=== PATIENT | male | born 1990 | race Caucasian/White ===

== ENCOUNTER 2023-05-14 18:27 | Emergency (ER) | payer BC, SELFPAY ==
[2023-05-14 18:28] VITALS: BP 135/82; PULSE 68; RESP 16; TEMP 36.1; O2SAT 99; BMI 39.6
--- NOTE | 2023-05-14 18:49 | EKG12_ITS ---
Test Reason : PALPS Blood Pressure : / mmHG Vent. Rate : 060 BPM Atrial Rate : 060 BPM P-R Int : 142 ms QRS Dur : 090 ms QT Int : 436 ms P-R-T Axes : -03 062 027 degrees QTc Int : 436 ms Poor data quality, interpretation may be adversely affected Normal sinus rhythm with sinus arrhythmia Normal ECG No previous ECGs available Confirmed by ALICIA CUMMINS MD ([id number]), editor & co founder ANNEMARIE STEARNS ([id number]) on 05/16/2023 11:16:29 AM Referred By: RAINA Confirmed By:ALICIA CUMMINS MD
--- NOTE | 2023-05-14 18:50 | ED.VIS.CHEST ---
HPI History of Present Illness Chief Complaint: Palpitations Informant: patient and spouse/S.O. Narrative Narrative: 32-year-old male presenting to the emergency room with chief complaint of palpitations. Patient states that this morning shortly after 0900 while awaking from sleep he noticed a pressure in his epigastrium. He states that his significant other had leg on the abdomen and seem to make the sensation spread out. It resolved. He notes that he has had at least 3 episodes of he describes as palpitations lasting less than 1 minute. He states that this concerned him and wanted to be evaluated. However the hospital his smart watch so that his oxygen level is 92% his heart rate was 66 which was odd because that is typically only his resting heart rate. He is a non-smoker. He notes his grandfather had early onset heart disease. [facility] Medical History (Updated 05/14/23 @ 19:[address] Floyd Sandhu DO) Palpitations Allergy/AdvReac Type Severity Reaction Status Date / Time azithromycin Allergy Rash Verified 05/14/23 19:25 Social History Smoking Status: Unknown if ever smoked ROS ROS ED Constitutional Constitutional ED: Denies chills, fever(s) or weight loss Eyes Eyes: Denies change in vision or diplopia ENT ENT ED: Denies ear pain, rhinorrhea or sore throat Cardiovascular Cardiovascular: Reports chest pain and palpitations; Denies orthopnea or racing heartbeat Respiratory/Chest Respiratory/Chest: Denies cough, dyspnea or orthopnea Gastrointestinal Gastrointestinal: Denies abdominal pain, diarrhea, nausea or vomiting Genitourinary Genitourinary ED: Denies dysuria, hematuria or urinary frequency Musculoskeletal Musculoskeletal: Denies arthralgias or myalgias Integumentary Denies abscess or rash Neurologic Neurologic: Denies headache(s) or weakness Psychiatric Psychiatric: Denies anxiety, depression, suicidal ideation or suicidal thoughts Endocrine Endocrinology: Denies polydipsia, polyphagia or polyuria Allergic/Immunologic Allergic/Immunologic ED: Denies mouth swelling, tongue swelling or urticaria EXAM Physical Exam Const Vital Signs: 05/14/23 18:28 Temperature 97 F L Temperature Source Temporal Pulse Rate 68 Respiratory Rate 16 Blood Pressure 135/82 H Blood Pressure Mean 99 Pulse Ox 99 Positive well nourished, well developed and obese General Appearance ED: well developed Nutritional Appearance: obese HEENT Reports normocephalic, head/scalp atraumatic and moist mucous membranes Eyes PERRL and EOMs intact bilaterally Neck no lymphadenopathy, supple and no JVD Resp normal respiratory effort and clear to auscultation bilaterally Cardio regular rate, regular rhythm and no murmurs GI normal to inspection, nondistended, normoactive bowel sounds and non-tender Palpation: soft Back/Spine no CVA tenderness and normal ROM Extremity normal to inspection General Extremety ED: Negative for edema General Extremity: Negative for edema Neuro oriented x3 and CN's II-XII intact bilaterally Sensorium / Orientation: alert Motor Exam: strength 5/5 throughout Psych mental status grossly normal Mood & Affect: Negative for depressed or tearful Skin no rashes or lesions noted and no wounds MDM MDM MDM Narrative Medical decision making narrative: My interpretation of the chest x-ray is normal mediastinal silhouette. Patient is a normal sinus rhythm. EKG shows no acute findings. Electrolytes are within normal limits. Troponin is 5. Hemoglobin 14.2. At this point I think the patient can be discharged home. I did recommend follow-up with his primary care doctor return if worsening or concerns History & Record Review Discussion w/independent historian: Patient and Significant other Lab Data Attestation: I reviewed the patient's lab results. Labs: Laboratory Results - last 24 hr 05/14/23 18:55 WBC 10.5 RBC 5.22 Hgb 14.2 Hct 44.8 MCV 85.8 MCH 27.2 MCHC 31.7 L RDW Std Deviation 41.1 RDW Coeff of Aarti 13.2 Plt Count 267 MPV 9.8 Immature Gran % (Auto) 1.400 H Neut % (Auto) 55.4 Lymph % (Auto) 34.0 Person % (Auto) 5.5 Eos % (Auto) 2.7 Baso % (Auto) 1.0 Absolute Neuts (auto) 5.8 Absolute Lymphs (auto) 3.56 Nucleated RBC % 0 Sodium 138 Potassium 4.0 Chloride 107 Carbon Dioxide 28.0 Anion Gap 3 L BUN 11 Creatinine 0.80 Estim Creat Clear Calc 133.79 Est GFR (MDRD) Af Amer 145 Est GFR (MDRD) Non-Af 120 BUN/Creatinine Ratio 13.8 Glucose 86 Calcium 9.2 Troponin I High Sens 5 Radiography Diagnostic Testing: Clinical Impression(s) from Imaging Studies Chest X-Ray 05/14/23 19:00 IMPRESSION: Normal x-ray examination of the chest for age. Electronically Signed: Ana Rodas MD at 19:14 EDT , EKG Initial EKG: Attestation: I personally reviewed and interpreted this EKG as follows: Comments: Normal sinus rhythm with a ventricular rate of 60 bpm. No concerning features of ACS noted. Discharge Plan Triage Chief Complaint: Palpitations ED Provider: Floyd Sandhu Dx/Rx/DC Orders Clinical Impression: Palpitations, Acute epigastric pain Instructions: ED Palpitations Primary Care Provider: Care Physician,No Primary Referrals: NOT,DEFINED [Non-Staff] - Wolf Ho MD [Med Staff - Active Staff] - Activity Restrictions/Additional Instructions: Please follow-up with primary care doctor of your choice or the physician above. Please return to the emergency department if worsening or any concerns Disposition Disposition: Home, Self Care
--- NOTE | 2023-05-14 19:00 | RAD_ITS ---
STUDY: X-RAY CHEST REASON FOR EXAM: Male, 32 years old. chest pain TECHNIQUE: Single AP portable view of the chest. COMPARISON: None. FINDINGS: The lungs are clear and expanded. There is no demonstrated pleural abnormality. Normal size heart. Normal mediastinum and candelaria. Normal visualized pulmonary arteries. Normal visualized aortic arch and descending thoracic aorta. Normal visualized thoracic spine. Normal visualized ribs, clavicles, and shoulders. There is no demonstrated abnormality of the visualized soft tissue structures of the upper abdomen. RAD/Chest 1 View (Portable) IMPRESSION: Normal x-ray examination of the chest for age. Electronically Signed: Ana Rodas MD at 19:14 EDT ,
[2023-05-14 19:23] LABS: Absolute Lymphocyte Count 3.56 X10^3/uL (0.83-4.51); Absolute Neutrophil Count 5.8 X10^3/uL (2.0-7.7); Eosinophil# 0.28 X10^3/uL; Eosinophils% 2.7 % (0-5); Hematocrit 44.8 % (40-54); Hemoglobin 14.2 g/dL (13.0-16.5); Lymphocyte # 3.56 X10^3/ul (0.83-4.51); Mean Corp Hgb Conc 31.7 g/dL (32-36); Mean Corpuscular Hgb 27.2 pg (27.0-32.0); Mean Corpuscular Volume 85.8 fL (80-94); Mean Platelet Vol. 9.8 fl (6.2-12.0); Monocyte# 0.58 X10^3/uL; Monocyte% 5.5 % (0-10); NRBC Flagged by Analyzer 0 % (0-5); Neutrophil # 5.79 X10^3/uL (2.7-7.7); Neutrophil % 55.4 % (47-70); Platelet Count 267 K/mm3 (150-450); RBC Distribution Width CV 13.2 % (11.6-14.6); RBC Distribution Width SD 41.1 fl (35.1-43.9); Red Blood Count 5.22 M/mm3 (4.6-6.2); White Blood Count 10.5 K/mm3 (4.4-11.0)
[2023-05-14 19:41] LABS: Anion Gap 3 (5-15); BUN 11 mg/dL (7-18); BUN/Creat Ratio 13.8 RATIO (10-20); Calcium,Total 9.2 mg/dL (8.5-10.1); Chloride 107 mmol/L (98-107); EST Glomerular Filtration Rate 120 mL/min (>60); Est Glom Filt Rate - Afr Amer 145 mL/min (>60); Estimated Creatinine Clearance 133.79 ml/min; Glucose 86 mg/dL (74-106); Sodium Level 138 mmol/L (136-145); Troponin-I HS (w/2H Reflex) 5 pg/mL (3.0-78.0)
[2023-05-14 20:03] VITALS: BP 134/81; PULSE 69
[2023-05-14 21:20] LABS: Reflex Troponin-HS? (from REC) Y
== END 2023-05-14 20:04 | disposition home or self-care (01) ==
PROVIDERS: Emergency Provider Emergency Medicine; Visit Provider Emergency Medicine
DX: R00.2 Palpitations (principal); R10.13 Epigastric pain; R07.9 Chest pain, unspecified; E66.9 Obesity, unspecified
CPT/HCPCS: 71045; 80048; 84484; 85025; 93005; 99283; A4216

== ENCOUNTER 2023-08-25 01:59 | Day surgery (SDC) | payer BC, SELFPAY ==
[2023-08-25 02:00] VITALS: BP 122/89; PULSE 75; RESP 18; TEMP 37.1; O2SAT 99; BMI 42.0
--- NOTE | 2023-08-25 02:24 | ED.VIS.GI ---
HPI HPI - GI History of Present Illness Chief Complaint: Foreign Body Informant: patient Narrative Narrative: Patient feels as though he has a piece of chicken stuck in his esophagus. He states he was not eating chicken bones. But about an hour and a half ago he was eating. He swallowed a piece and it appeared to get stuck. He has not and does not have any trouble breathing. He has had this happen before but normally if he takes a few drinks of water it will go down and go away. He has never been seen before for it. He is on no meds. He felt fine prior to this happening. [facility] Medical History Palpitations Home Medications testosterone cypionate 200 mg/mL intramuscular oil 100 mg IM Q7D 08/25/23 [History Last Taken Unknown] Allergy/AdvReac Type Severity Reaction Status Date / Time azithromycin Allergy Rash Verified 08/25/23 02:00 Social History Smoking Status: Unknown if ever smoked ROS ROS ED ROS Narrative A complete review of systems was performed and is negative except as documented in the history of present illness. Some specific details below. Constitutional: No recent fevers or chills. ENT: No pain. No swelling. See history of present illness. CV: No chest pain or palpitations. Respiratory: No dyspnea. No hemoptysis. No difficulty taking breaths. GI: Please see history of present illness. : No frequency dysuria or hematuria. Musculoskeletal: No recent trauma. No pains. Skin: No rash. Nondiaphoretic. Neuro: No weakness or numbness. Endocrine: No polyuria or polydipsia. EXAM Physical Exam Narrative Exam Narrative: CONSTITUTIONAL: Patient is nontoxic in appearance. The patient looks comfortable. He is spitting saliva into a bag. HEENT: No notable trauma. Mucous membranes moist. No sinus tenderness. No indication of pain with swallowing. No swollen areas. Voice is normal. EYES: No pallor. CARDIOVASCULAR: Regular rate. Regular rhythm. No notable murmur. No JVD. RESPIRATORY: No respiratory distress. Breathing is unlabored. No wheezes. No rhonchi. No rales. No pain with a deep breath. GASTROINTESTINAL: Not distended. Bowel sounds are normal. No tenderness. No guarding. No rebound. Overall very benign abdomen. GENITOURINARY: No CVA tenderness. MUSCULOSKELETAL: Atraumatic. NEUROLOGICAL: Patient is alert and appropriate. No focal deficit noted. SKIN: No noted rashes. No diaphoresis. PSYCHIATRIC: Patient is calm. Mood is appropriate. Const Vital Signs: 08/25/23 02:00 08/25/23 02:04 08/25/23 03:49 Temperature 98.7 F 98.4 F Temperature Source Oral Oral Pulse Rate 75 95 Respiratory Rate 18 18 Respiratory Effort Normal Non-Labored Respiratory Pattern Normal Blood Pressure 122/89 H 152/111 H Blood Pressure Mean 100 124 Blood Pressure Source Monitor Blood Pressure Position Semi-Fowlers Blood Pressure Location Right Forearm Pulse Ox 99 95 Oxygen Delivery Method Room Air Room Air MDM MDM MDM Narrative Medical decision making narrative: We had the patient drink warm Diet Coke. Landed firmly on his heels. We will have him repeat this several times to see if we can get this to move. This did not get the food bolus to pass. We will place an IV and give glucagon. We will try again. Patient CBC shows minimal elevation of white count of 13 7 which is nonspecific. Patient's electrolytes show no marked abnormalities. Glucose was minimally up at 115. Liver function test showed minimal elevations of ALT and AST. Bilirubin and alk phos are normal. We have given him IV fluids, IV glucagon, tried multiple times with Diet Coke. He has done the technique well. But we cannot get this to move. I contacted Dr. Chavez who came in for endoscopy. Lab Data Attestation: I reviewed the patient's lab results. Labs: Laboratory Results - last 24 hr 08/25/23 03:00 WBC 13.7 H RBC 5.60 Hgb 15.6 Hct 47.9 MCV 85.5 MCH 27.9 MCHC 32.6 RDW Std Deviation 43.4 RDW Coeff of Aarti 13.9 Plt Count 334 MPV 9.4 Immature Gran % (Auto) 0.700 Neut % (Auto) 67.6 Lymph % (Auto) 23.5 Pierce % (Auto) 5.1 Eos % (Auto) 2.3 Baso % (Auto) 0.8 Absolute Neuts (auto) 9.2 H Absolute Lymphs (auto) 3.21 Nucleated RBC % 0 Sodium 138 Potassium 4.0 Chloride 107 Carbon Dioxide 26.0 Anion Gap 5 BUN 10 Creatinine 0.96 Estim Creat Clear Calc 148.24 Est GFR (MDRD) Af Amer 116 Est GFR (MDRD) Non-Af 96 BUN/Creatinine Ratio 10.4 Glucose 115 H Calcium 10.0 Total Bilirubin 0.50 AST 68 H ALT 125 H Alkaline Phosphatase 64 Total Protein 8.0 Albumin 4.1 Globulin 3.9 Albumin/Globulin Ratio 1.1 Discharge Plan Triage Chief Complaint: Foreign Body ED Provider: Ede Gomez Dx/Rx/DC Orders Clinical Impression: Food impaction of esophagus Primary Care Provider: Care Physician,No Primary Disposition Disposition: Home, Self Care Discharge Date/Time: 08/25/23 04:57
--- OUTSIDE RECORDS SUMMARY | 2023-08-25 02:34 | XMS RPT_ITS | CCD ---
Author Name Unknown Address [address] [place] [address] Organization [facility] Care Team Providers Care Director [facility] Name Role Phone Unavailable Primary Care Provider UnavailMARK Dimas Attending Unavailable MARK KAUFMAN Referring Unavailable MARK KAUFMAN Attending Unavailable MARIE SAHA CNP Admitting Unavailable MARIE SAHA CNP Attending Unavailable MARIE SAHA CNP Primary Care Unavailable MIGUEL MARTINEZ Consulting Unavailable PROVIDER, UNKNOWN Consulting Unavailable PROVIDER, UNKNOWN Consulting Unavailable PROVIDER, UNKNOWN Consulting Unavailable Problems Problem Classification Problem Date Documented Da te Episodic/Chronic Cardiac dysrhythmias (1 source) Palpitations; Translations: [Palpitations] Onset: 06-08-2023 Episodic Malaise and fatigue (1 source) Other fatigue; Translations: [Other fatigue] Onset: 06-08-2023 Episodic Other injuries and conditions due to external causes (1 source) Injury of finger of left hand; Translations: [Unspecified injury of left wrist, hand and finger(s), initial encounter] Episodic Other injuries and conditions due to external causes (4 sources) Unspecified injury of left wrist, hand and finger(s), initial encounter; Translations: [Unspecified injury of left wrist, hand and finger(s), initial encounter] Onset: 11-10-2022 Episodic Other screening for suspected conditions (not mental disorders or infectious disease) (2 sources) Encounter for screening for diabetes mellitus; Translations: [Encounter for screening for diseases of the blood and blood-forming organs and certain disorders involving the immune mechanism] Onset: 06-08-2023 Episodic Unclassified (1 source) No additional problems on file Results Test Name Value Interpretation Reference Range Facil ity Vital Signs Date Time Vital Sign Value Performing Clinician Barrie cummings 11-10-2022 11:53-0400 Body temperature 97.59 [degF] Mark Kaufman MD Work Phone: [facility] 11-10-2022 11:53-0400 Diastolic blood pressure 90 mm[Hg] Mark Kaufman MD Work Phone: [facility] 11-10-2022 11:53-0400 Heart rate 69 /min Mark Kaufman MD Work Phone: [facility] 11-10-2022 11:53-0400 Respiratory rate 18 /min Mark Kaufman MD Work Phone: [facility] 11-10-2022 11:53-0400 SaO2% (BldA) [Mass fraction] 97 % Mark Kaufman MD Work Phone: [facility] 11-10-2022 11:53-0400 Systolic blood pressure 162 mm[Hg] Mark Kaufman MD Work Phone: [facility] Encounters Encounter Date Encounter Type Care Provider Facility Start: 06-08-2023 End: 06-08-2023 ambulatory MARIE SANCHEZ [facility] Start: 11-10-2022 End: 11-10-2022 Emergency department patient visit MARK KAUFMAN [facility] Start: 11-10-2022 End: 11-10-2022 Emergency department patient visit Mark Kaufman MD Work Phone: [facility] Emergency Department Procedures Date Procedure Procedure Detail Performing Clinician Start: 11-10-2022 Radex hand minimum 3 views Mark Kaufman MD Work Phone: Plan of Treatment Date Care Activity Detail Author Start: 04-05-2023 Influenza vaccination INFLUENZ A VACCINE (Season Ended) [facility] Start: 2010 Third diphtheria, te tanus and acellular pertussis (DTaP) vaccination TDAP (ADULT) [facility] Start: 2006 HIV screening HIV SCREENING DISCUSSION [facility] Start: 03-23-1992 COVID-19 VACCINE (#1) COVID-19 VACCI NE (#1) [facility] Start: 1991 Hepatitis C screening HEPATITI S C VIRUS SCREENING [facility] Start: 1991 Tetanus vaccination TETANUS [facility] Payers Date Payer Category Payer Unknown [employer] [id number] 2022-Present [address] [place] [address] [id number] 2022 Unknown [id number] 1991 Unknown [id number] 1991 Unknown [id number] 1991 Unknown [id number] 1991 Unknown [id number] Unknown [id number] Social History Date Type Detail Facility Start: 11-10-2022 Tobacco smoking stat [facility] Never smoked tobacco [facility] Start: 11-10-2022 Tobacco use and exposure Smokeless tobacco non-user [facility] Start: 11-10-2022 Alcohol intake Lifetime non-d rasheeda (finding) [facility] Start: 1991 Sex Assigned At Not on file [facility] Emergency department Note 11-10-2022 Jenny Alaniz LPN - 11/10/2022 12:40 PM EDT Note Date & Type Note Facility 11-10-2022 Emergency departm ent Note Discharge instructions reviewed with patient who verbalizes clear understanding. He denies any further concern or question. Patient will establish with a provider and follow up as instructed. Patient left unit demonstrating a steady gait. [facility] Emergency department Note 11-10-2022 Jenny Alaniz LPN - 11/10/2022 12:40 PM EDWilbur Alaniz LPN - 11/10/2022 12:14 PM EDWilbur Alaniz LPN - 11/10/2022 12:03 PM Ailyn Kaufman MD - 11/10/2022 11:58 AM EDT Note Date & Type Note Facility 11-10-2022 Emergency departm ent Note Discharge instructions reviewed with patient who verbalizes clear understanding. He denies any further concern or question. Patient will establish with a provider and follow up as instructed. Patient left unit demonstrating a steady gait. Registration at chair side Radiology at bedside Emergency Department Report [facility] EMERGENCY DEPARTMENT Service Date:.11/10/22 PCP: No primary care provider on file. Chief Complaint: Chief Complaint Patient presents with Hand Pain To ED with c/o left index finger injury after smashing it in a cabinet and crowbar yesterday HPI Yovany Bararza is a 32 y.o. male presents to the ED with chief complaint of a left index finger injury. He states he injured it last night pinching of between a crowbar in a cabinet that he was working on. He states it hurts but he is taking Aleve for it. He is right-hand dominant. He denies any bleeding. Denies any pain in the wrist or dorsum of the hand. Review of Systems: Review of Systems Musculoskeletal: Positive for left index finger injury and pain Skin: Positive for bruising to the tip of the 2nd digit of the left hand Neurologic: Negative for numbness or tingling to the hand or fingers Past Medical History: No past medical history on file. Past Surgical History: No past surgical history on file. Allergies: No Known Allergies Medications: Patient's Medications No medications on file Family History: History reviewed. No pertinent family history. Social History: Social History Socioeconomic History Marital status: Single Spouse name: Not on file Number of children: Not on file Years of education: Not on file Highest education level: Not on file Occupational History Not on file Tobacco Use Smoking status: Never Smokeless tobacco: Never Substance and Sexual Activity Alcohol use: Never Drug use: Never Sexual activity: Not on file Other Topics Concern Not on file Social History Narrative Not on file Social Determinants of Health Financial Resource Strain: Not on file Food Insecurity: Not on file Transportation Needs: Not on file Physical Activity: Not on file Stress: Not on file Social Connections: Not on file Intimate Partner Violence: Not on file Housing Stability: Not on file Physical Exam: Physical Exam General: Well-developed well-nourished nontoxic Skin: Warm, dry. Bruising noted to the tip of the 2nd digit of the left hand. No laceration Heart: Capillary refill is brisk and less than 2 seconds Neurologic: Intact sensation of the tips of the digits of his left hand. Moving all extremities well Musculoskeletal: Swelling noted to the tip of the 2nd digit. There is no obvious angulation deformity. No tenderness over the dorsum of the hand or anatomic snuffbox or wrist. Vital Signs During ED Visit Patient Vitals for the past 24 hrs: BP Temp Temp src Pulse Resp SpO2 11/10/22 1153 162/90 97.6 F (36.4 C) Oral 69 18 97 % Orders/Results: No results found for this visit on 11/10/22. Radiographic Imaging XR HAND LEFT 3+ VIEWS Final Result IMPRESSION: No acute osseous abnormality of the second digit or remaining structures of the hand. Possible remote nonunion fracture involving the scaphoid. No priors were available at time report. Correlate with patient history and/or outside imaging if available. Procedures: Procedures Moderate Sedation Procedure: No ED Summary/MDM X-rays at this time showed no fracture to the tip of the digit. He will be discharged home in stable improved condition. There was incidental finding of possible remote fracture of the wrist. The patient is not having any pain on re-evaluation. He will be discharged home in stable improved condition Clinical Impression: 1. Finger injury, left, initial encounter No follow-ups on file. New Prescriptions No medications on file Discontinued Medications No medications on file An After Visit Summary was printed and given to the patient with above information. . Mark Kaufman MD 11/10/22 1234 Provider at chair side for exam documented in this encounter [facility] Emergency department Note 11-10-2022 Jenny Alaniz LPN - 11/10/2022 12:14 PM EDT Note Date & Type Note Facility 11-10-2022 Emergency departm ent Note Registration at chair side [facility] Emergency department Note 11-10-2022 Jenny Alaniz LPN - 11/10/2022 12:03 PM EDT Note Date & Type Note Facility 11-10-2022 Emergency departm ent Note Radiology at bedside [facility] Physician Emergency department Note 11-10-2022 Mark Kaufman MD - 11/10/2022 11:58 AM EDT Note Date & Type Note Facility 11-10-2022 Physician Emergency department Note Emergency Department Report [facility] EMERGENCY DEPARTMENT Service Date:.11/10/22 PCP: No primary care provider on file. Chief Complaint: Chief Complaint Patient presents with Hand Pain To ED with c/o left index finger injury after smashing it in a cabinet and crowbar yesterday HPI Yovany Barraza is a 32 y.o. male presents to the ED with chief complaint of a left index finger injury. He states he injured it last night pinching of between a crowbar in a cabinet that he was working on. He states it hurts but he is taking Aleve for it. He is right-hand dominant. He denies any bleeding. Denies any pain in the wrist or dorsum of the hand. Review of Systems: Review of Systems Musculoskeletal: Positive for left index finger injury and pain Skin: Positive for bruising to the tip of the 2nd digit of the left hand Neurologic: Negative for numbness or tingling to the hand or fingers Past Medical History: No past medical history on file. Past Surgical History: No past surgical history on file. Allergies: No Known Allergies Medications: Patient's Medications No medications on file Family History: History reviewed. No pertinent family history. Social History: Social History Socioeconomic History Marital status: Single Spouse name: Not on file Number of children: Not on file Years of education: Not on file Highest education level: Not on file Occupational History Not on file Tobacco Use Smoking status: Never Smokeless tobacco: Never Substance and Sexual Activity Alcohol use: Never Drug use: Never Sexual activity: Not on file Other Topics Concern Not on file Social History Narrative Not on file Social Determinants of Health Financial Resource Strain: Not on file Food Insecurity: Not on file Transportation Needs: Not on file Physical Activity: Not on file Stress: Not on file Social Connections: Not on file Intimate Partner Violence: Not on file Housing Stability: Not on file Physical Exam: Physical Exam General: Well-developed well-nourished nontoxic Skin: Warm, dry. Bruising noted to the tip of the 2nd digit of the left hand. No laceration Heart: Capillary refill is brisk and less than 2 seconds Neurologic: Intact sensation of the tips of the digits of his left hand. Moving all extremities well Musculoskeletal: Swelling noted to the tip of the 2nd digit. There is no obvious angulation deformity. No tenderness over the dorsum of the hand or anatomic snuffbox or wrist. Vital Signs During ED Visit Patient Vitals for the past 24 hrs: BP Temp Temp src Pulse Resp SpO2 11/10/22 1153 162/90 97.6 F (36.4 C) Oral 69 18 97 % Orders/Results: No results found for this visit on 11/10/22. Radiographic Imaging XR HAND LEFT 3+ VIEWS Final Result IMPRESSION: No acute osseous abnormality of the second digit or remaining structures of the hand. Possible remote nonunion fracture involving the scaphoid. No priors were available at time report. Correlate with patient history and/or outside imaging if available. Procedures: Procedures Moderate Sedation Procedure: No ED Summary/MDM X-rays at this time showed no fracture to the tip of the digit. He will be discharged home in stable improved condition. There was incidental finding of possible remote fracture of the wrist. The patient is not having any pain on re-evaluation. He will be discharged home in stable improved condition Clinical Impression: 1. Finger injury, left, initial encounter No follow-ups on file. New Prescriptions No medications on file Discontinued Medications No medications on file An After Visit Summary was printed and given to the patient with above information. . Mark Kaufman MD 11/10/22 1234 [facility] Work Phone: Emergency department Note 11-10-2022 Jenny Alaniz LPN - 11/10/2022 11:55 AM EDT Note Date & Type Note Facility 11-10-2022 Emergency departm ent Note Provider at chair side for exam [facility] Evaluation note Note Date & Type Note Facility documented in this encounter [facility] Hospital Discharge instructions Attachments Note Date & Type Note Facility Hospital Discharge instructions The following attachments cannot be sent through Care Everywhere.Contusion: Hand (Puerto Rican)documented in this encounter [facility] Summary Purpose Family History No Family History Records FoundNo Family History Records FoundNo Family History Records Found Advance Directives No Advanced Directives Records FoundNo Advanced Directives Records FoundNo Advanced Directives Records Found Additional Source Comments Reason for Visit (unrecogniz ed section and content) (unrecognized sect ion and content) No Status Records FoundNo Status Records FoundNo Status Records Found INFORMATION SOURCE (unrecogn ized section and content) DATE CREATED AUTHOR AUTHOR'S ORGANIZ ATION 11/13/2022 [facility] DATE CREATED AUTHOR AUTHOR'S ORGANIZ ATION 06/22/2023 [facility] FOR RECORDS PERTAINING TO PATIENTS WHO ARE OR HAVE BEEN ENROLLED IN A CHEMICAL DEPENDENCY/SUBSTANCEABUSE PROGRAM, SOME INFORMATION MAY BE OMITTED. This clinical summary was aggregated from multiple sources. Caution should be exercised in using it in the provision of clinical care. This summary normalizes information from multiple sources, and as a consequence, information in this document may materially change the coding, format and clinical context of patient data. In addition, data may be omitted in some cases. CLINICAL DECISIONS SHOULD BE BASED ON THE PRIMARY CLINICAL RECORDS. [facility]. provides no warranty or guarantee of the accuracy or completeness of information in this document.
[2023-08-25] MEDS: Glucagon 1 MG/ML Syringe IV (03:04)
[2023-08-25 03:06] LABS: Absolute Lymphocyte Count 3.21 X10^3/uL (0.83-4.51); Absolute Neutrophil Count 9.2 X10^3/uL (2.0-7.7); Basophil# 0.11 X10^3/uL; Basophil% 0.8 % (0-1); Eosinophil# 0.31 X10^3/uL; Eosinophils% 2.3 % (0-5); Hematocrit 47.9 % (40-54); Hemoglobin 15.6 g/dL (13.0-16.5); Lymphocyte # 3.21 X10^3/ul (0.83-4.51); Lymphocyte % 23.5 % (19-41); Mean Corp Hgb Conc 32.6 g/dL (32-36); Mean Corpuscular Hgb 27.9 pg (27.0-32.0); Mean Corpuscular Volume 85.5 fL (80-94); Mean Platelet Vol. 9.4 fl (6.2-12.0); Monocyte# 0.69 X10^3/uL; Monocyte% 5.1 % (0-10); NRBC Flagged by Analyzer 0 % (0-5); Neutrophil # 9.23 X10^3/uL (2.7-7.7); Neutrophil % 67.6 % (47-70); Platelet Count 334 K/mm3 (150-450); RBC Distribution Width CV 13.9 % (11.6-14.6); RBC Distribution Width SD 43.4 fl (35.1-43.9); White Blood Count 13.7 K/mm3 (4.4-11.0)
[2023-08-25 03:20] LABS: ALB/GLOB Ratio 1.1 RATIO (0.9-2.4); AST(SGOT) 68 U/L (15-37); Alanine Aminotransfer ALT/SGPT 125 U/L (16-61); Albumin, Serum 4.1 g/dL (3.2-5.0); Alkaline Phosphatase 64 U/L (45-117); Anion Gap 5 (5-15); BUN 10 mg/dL (7-18); BUN/Creat Ratio 10.4 RATIO (10-20); Chloride 107 mmol/L (98-107); Creatinine, Serum 0.96 mg/dL (0.70-1.30); EST Glomerular Filtration Rate 96 mL/min (>60); Est Glom Filt Rate - Afr Amer 116 mL/min (>60); Estimated Creatinine Clearance 148.24 ml/min; Globulin 3.9 g/dL (2.2-4.2); Glucose 115 mg/dL (74-106); Sodium Level 138 mmol/L (136-145)
[2023-08-25 03:49] VITALS: BP 152/111; PULSE 95; RESP 18; TEMP 36.9; O2SAT 95; BMI 42.0
--- NOTE | 2023-08-25 04:24 | CON.PCM.SX_ITS ---
Assessment & Plan Assessment/Plan (1) Food impaction of esophagus: PLAN: Plan I have discussed the above with the patient. I have offered the patient esophagogastroduodenoscopy for evaluation and removal of foreign body I have explained the risks/benefits of the procedure and described the procedure. I have discussed the risks with the patient, including but not limited to: infection, bleeding, aspiration of food particles, perforation of the GI tract requiring emergency surgery/transfer to tertiary facility, inability to complete the procedure, injury to any internal organs, complications of anesthesia, etc. - the patient understands and agrees to proceed. I have answered all the patient's questions to the patient's satisfaction and the patient has no further questions. Kristina Chavez M.D. Pager: [phone] [facility] [address] [place] [address], [address] [place] [address] Office: [phone] HPI Consult Data Date of Consult: 08/25/23 HPI Narrative HPI Narrative: DONNY SANDOVAL, is a 32 M who presents presents to the ER due to esophageal food impaction. Patient states he was eating chicken and ate about 1130. Patient states that has been occasional issue prior knees normally will drink prior to eating and usually he is able to get it come back up however that did not happen this time. Patient not able to get anything up. Patient did have nausea and vomiting had previous EGD denies any reflux symptoms. Patient is spitting up his saliva. Patient denies having any other surgeries. [facility] Medical History Palpitations Home Medications testosterone cypionate 200 mg/mL intramuscular oil 100 mg IM Q7D 08/25/23 [History Last Taken Unknown] Allergy/AdvReac Type Severity Reaction Status Date / Time azithromycin Allergy Rash Verified 08/25/23 02:00 Social History Smoking Status: Unknown if ever smoked Physical Exam Const alert, oriented x3 and no apparent distress HEENT normocephalic and head/scalp atraumatic Resp normal respiratory effort Cardio Rate: regular rate GI soft to palpation, non-tender and non-distended Lab / Micro Data 08/25/23 03:00 08/25/23 03:00 Labs: Laboratory Results - last 24 hr 08/25/23 03:00: WBC 13.7 H, RBC 5.60, Hgb 15.6, Hct 47.9, MCV 85.5, MCH 27.9, MCHC 32.6, RDW Std Deviation 43.4, RDW Coeff of Aarti 13.9, Plt Count 334, MPV 9.4, Immature Gran % (Auto) 0.700, Neut % (Auto) 67.6, Lymph % (Auto) 23.5, [place] % (Auto) 5.1, Eos % (Auto) 2.3, Baso % (Auto) 0.8, Absolute Neuts (auto) 9.2 H, Absolute Lymphs (auto) 3.21, Nucleated RBC % 0, Sodium 138, Potassium 4.0, Chl oride 107, Carbon Dioxide 26.0, Anion Gap 5, BUN 10, Creatinine 0.96, Estim Creat Clear Calc 148.24, Est GFR (MDRD) Af Amer 116, Est GFR (MDRD) Non-Af 96, BUN/Creatinine Ratio 10.4, Glucose 115 H, Calcium 10.0, Total Bilirubin 0.50, AST 68 H, ALT 125 H, Alkaline Phosphatase 64, Total Protein 8.0, Albumin 4.1, Globulin 3.9, Albumin/Globulin Ratio 1.1
--- OUTSIDE RECORDS SUMMARY | 2023-08-25 04:55 | XMS RPT_ITS | CCD ---
Author Name Unknown Address [address] [place] [address] Organization [facility] Care Team Providers Care Treatment Counselor Name Role Phone Unavailable Primary Care Provider [...] 97.59 [degF] Mark Kaufman MD Work Phone: [facility] 11-10-2022 11:53-0400 Diastolic blood pressure 90 mm[Hg] Mark Kaufman MD Work Phone: [facility] 11-10-2022 11:53-0400 Heart rate 69 /min Mark Kaufman MD Work Phone: [facility] 11-10-2022 11:53-0400 Respiratory rate 18 /min Mark Kaufman MD Work Phone: [facility] 11-10-2022 11:53-0400 SaO2% (BldA) [Mass fraction] 97 % Mark Kaufman MD Work Phone: [facility] 11-10-2022 11:53-0400 Systolic blood pressure 162 mm[Hg] Mark Kaufman MD Work Phone: [facility] Encounters Encounter Date Encounter Type Care Provider Facility Start: 06-08-2023 End: 06-08-2023 ambulatory MARIE SANCHEZ [facility] Start: 11-10-2022 End: 11-10-2022 Emergency department patient visit MARK KAUFMAN [facility] Start: 11-10-2022 End: 11-10-2022 Emergency department patient visit Mark Kaufman MD Work Phone: [facility] Emergency Department Procedures Date Procedure Procedure Detail Performing Clinician Start: 11-10-2022 Radex hand minimum 3 views Mark Kaufman MD Work Phone: Plan of Treatment Date Care Activity Detail Author Start: 04-05-2023 Influenza vaccination INFLUENZ A VACCINE (Season Ended) [facility] Start: 2010 Third diphtheria, te tanus and acellular pertussis (DTaP) vaccination TDAP (ADULT) [facility] Start: 2006 HIV screening HIV SCREENING DISCUSSION [facility] Start: 03-23-1992 COVID-19 VACCINE (#1) COVID-19 VACCI NE (#1) [facility] Start: 1991 Hepatitis C screening HEPATITI S C VIRUS SCREENING [facility] Start: 1991 Tetanus vaccination TETANUS [facility] Payers Date Payer Category Payer Unknown [employer] [id number] 2022-Present [address] [place] [address] [id number] 2022 Unknown [id number] 1990 Unknown [id number] 1990 Unknown [id number] 1991 Unknown [id number] 1990 Unknown [id number] 1 Unknown [id number] Social History Date Type Detail Facility Start: 11-10-2022 Tobacco smoking stat [facility] Never smoked tobacco [facility] Start: 11-10-2022 Tobacco use and exposure Smokeless tobacco non-user [facility] Start: 11-10-2022 Alcohol intake Lifetime non-d rasheeda (finding) [facility] Start: 1990 Sex Assigned At Not on file [facility] Emergency department Note 11-10-2022 Jenny Alaniz LPN - 11/10/2022 12:40 PM EDT Note Date & Type Note Facility 11-10-2022 Emergency departm ent Note Discharge instructions reviewed with patient who verbalizes clear understanding. He denies any further concern or question. Patient will establish with a provider and follow up as instructed. Patient left unit demonstrating a steady gait. [facility] Emergency department Note 11-10-2022 Jenny Alaniz LPN [...] side Radiology at bedside Emergency Department Report [facility] EM[facility]GENCY [facility]PARTMENT Service Date:.11/10/22 PCP: [...] side for exam documented in this encounter [facility] Emergency department Note 11-10-2022 Jenny Alaniz LPN - 11/10/2022 12:14 PM EDT Note Date & Type Note Facility 11-10-2022 Emergency departm ent Note Registration at chair side [facility] Emergency department Note 11-10-2022 Jenny Alaniz LPN - 11/10/2022 12:03 PM EDT Note Date & Type Note Facility 11-10-2022 Emergency departm ent Note Radiology at bedside [facility] Physician Emergency department Note 11-10-2022 Mark Kaufman MD - 11/10/2022 11:58 AM EDT Note Date & Type Note Facility 11-10-2022 Physician Emergency department Note Emergency Department Report [facility] Service Date:.11/10/22 PCP: [...] information. . Mark Kaufman MD 11/10/22 1234 [facility] Work Phone: Emergency department Note 11-10-2022 Jenny Alaniz LPN - 11/10/2022 11:55 AM EDT Note Date & Type Note Facility 11-10-2022 Emergency departm ent Note Provider at chair side for exam [facility] Evaluation note Note Date & Type Note Facility documented in this encounter [facility] Hospital Discharge instructions Attachments Note Date & Type Note Facility Hospital Discharge instructions The following attachments cannot be sent through Care Everywhere.Contusion: Hand ([place])documented in this encounter [facility] Summary Purpose Family History No Family History [...] DATE CREATED AUTHOR AUTHOR'S ORGANIZ ATION 11/13/2022 [facility] [place] DATE CREATED AUTHOR AUTHOR'S ORGANIZ ATION 06/22/2023 [facility] FOR RECORDS PERTAINING TO PATIENTS WHO ARE [...] BE BASED ON THE PRIMARY CLINICAL RECORDS. [facility]. provides no warranty or guarantee of the accuracy or completeness of information in this document.
[2023-08-25 05:58] VITALS: BP 159/77; PULSE 109; RESP 16; TEMP 36.4; O2SAT 92
[2023-08-25 06:05] VITALS: BP 127/68; PULSE 117; RESP 16; O2SAT 90
--- NOTE | 2023-08-25 06:05 | OP.CCLET_ITS ---
08/25/2023 No Primary Care Physician Re : Upper GI endoscopy procedure for Madi Pedroza [facility] Care Physician This procedure was performed on Friday, August 25, 2023. My impressions and recommendations are as follows: Impressions : - Food in the lower third of the esophagus. Removal was successful. - Esophageal mucosal changes were present, including erythema. Findings are suggestive of inflammation. - Normal stomach. - Normal examined duodenum. Recommendations : - Discharge patient to home. - Soft diet for 2 days. - Use Protonix (pantoprazole) 40 mg PO daily. - Continue present medications. My findings are described in the full procedure note, which is enclosed. If I can be of further assistance, please feel free to contact me at Doctor phone number(s): , Work: . Sincerely, MD Kristina Gonzales MD 08/25/2023 6:04:52 AM This report has been signed electronically.
--- NOTE | 2023-08-25 06:05 | OP.EGD_ITS ---
Patient Name: Madi Pedroza Procedure Date: 08/25/2023 5:08 AM Date of : 1990 Age: 32 Procedure: Upper GI endoscopy Indications: Foreign body in the esophagus Providers: Kristina Chavez MD Medicines: Monitored Anesthesia Care Patient Profile: This is a 32 year old male. Complications: No immediate complications. Procedure: Pre-Anesthesia Assessment: - Prior to the procedure, a History and Physical was performed, and patient medications and allergies were reviewed. The patient's tolerance of previous anesthesia was also reviewed. The risks and benefits of the procedure and the sedation options and risks were discussed with the patient. All questions were answered, and informed consent was obtained. Prior Anticoagulants: The patient has taken no anticoagulant or antiplatelet agents. ASA Grade Assessment: Per anesthesia. After reviewing the risks and benefits, the patient was deemed in satisfactory condition to undergo the procedure. After obtaining informed consent, the endoscope was passed under direct vision. Throughout the procedure, the patient's blood pressure, pulse, and oxygen saturations were monitored continuously. The gastroscope was introduced through the mouth, and advanced to the second part of duodenum. The upper GI endoscopy was technically difficult and complex due to presence of food. Successful completion of the procedure was aided by administering oxygen. The patient tolerated the procedure fairly well. Scope In: 5:29:40 AM Scope Out: 5:55:08 AM Total Procedure Duration Time 0 hours 25 minutes 28 seconds Findings: Food was found in the lower third of the esophagus. Removal was accomplished with an overtube. Removal was accomplished with a nakita forceps. Due to hypoxia- scope and overtube removed and O2 mask placed. After replacing overtube and scope the food bolus was in the stomach. Localized mild inflammation characterized by erythema was found at the gastroesophageal junction due to food impaction. The stomach was normal. The examined duodenum was normal. Impression: - Food in the lower third of the esophagus. Removal was successful. - Esophageal mucosal changes were present, including erythema. Findings are suggestive of inflammation. - Normal stomach. - Normal examined duodenum. Recommendation: - Discharge patient to home. - Soft diet for 2 days. - Use Protonix (pantoprazole) 40 mg PO daily. - Continue present medications. Procedure Code(s): --- Professional --- 83846, Esophagogastroduodenoscopy, flexible, transoral; with removal of foreign body(s) Diagnosis Code(s): --- Professional --- T18.128A, Food in esophagus causing other injury, initial encounter K22.89, Other specified disease of esophagus T18.108A, Unspecified foreign body in esophagus causing other injury, initial encounter CPT copyright 2021 [employer]. All rights reserved. The codes documented in this report are preliminary and upon remote inpatient coder review may be revised to meet current compliance requirements. MD Kristina Gonzales MD 08/25/2023 6:04:52 AM This report has been signed electronically. Number of Addenda: 0 Note Initiated On: 08/25/2023 5:08 AM
[2023-08-25 06:10] VITALS: BP 130/63; PULSE 103; RESP 16; O2SAT 94
[2023-08-25 06:16] VITALS: BP 143/80; PULSE 99; RESP 16; TEMP 36.1; O2SAT 95
== END 2023-08-25 06:28 | disposition home or self-care (01) ==
LOC: ED 04:20 → SDC 04:52
PROVIDERS: Emergency Provider Emergency Medicine; Visit Provider Surgery
PROC: 0DJ08ZZ Inspection of Upper Intestinal Tract, Via Natural or Artificial Opening Endoscopic (ICD-10-PCS; CPT 43235; principal; 2023-08-25 04:45)
DX: T18.128A Food in esophagus causing other injury, initial encounter (principal); W44.F3XA Food entering into or through a natural orifice, initial encounter
CPT/HCPCS: 43247; 80053; 85025; 99283; J7120; A4216; J1610; J2405